=== PATIENT | male | born 1995 | race Caucasian/White ===

== ENCOUNTER → 2018-12-29 | Outpatient (CLI) | payer OTHER ==
[~2018-12-29] MED LIST: MELO-207 PO
--- NOTE | 2018-12-29 15:23 | RADIOLOGY IMAGING REPORT ---
FACILITY: [facility] - [place] PATIENT NAME: Delores Jean : 1995 MR: [id number] V: [id number] EXAM DATE: ORDERING PHYSICIAN: KISHORE LESLIE TECHNOLOGIST: Location: [facility] [place] Patient: Delores Jean : 1995 Visit/Account:[id number] Date of Sevice: 12/29/2018 KNEE 3 VIEW LEFT HISTORY: Knee pain COMPARISON: None FINDINGS: Left knee: No acute fracture or dislocation. No significant degenerative changes. No evidence of AVN. No joint effusion. No loose body. IMPRESSION: 1. No acute osseous abnormality. Report Dictated By: Willie Carmona MD at 12/29/2018 3:17 PM Report E-Signed By: Willie Carmona MD at 12/29/2018 3:18 PM WSN:[id number]
== END ==
LOC: RAD 14:55
PROVIDERS: ATTEND Internal Medicine
DX: S86.812A Strain of other muscle(s) and tendon(s) at lower leg level, left leg, initial encounter (principal)

== ENCOUNTER → 2019-01-07 | Outpatient (CLI) | payer OTHER ==
--- NOTE | 2019-01-07 09:10 | RADIOLOGY IMAGING REPORT ---
FACILITY: [facility] PATIENT NAME: Delores Jean : 1995 MR: [id number] V: [id number] EXAM DATE: ORDERING PHYSICIAN: KISHORE LESLIE TECHNOLOGIST: Location: [facility] Patient: Delores Jean : 1995 Visit/Account:[id number] Date of Sevice: 01/07/2019 MRI left knee without contrast Indication: Knee pain. History of [place] injury. Comparison: Plain film examination dated December 29, 2018 is reviewed. Technique: Multiplanar, multisequence MRI examination is performed of the left knee without contrast. Findings: Examination of the medial compartment demonstrates a normal medial meniscus. The articular cartilage surfaces are normal. Examination of the lateral compartment demonstrates a focal undersurface tear of the posterior horn o f the lateral meniscus. No displaced meniscal fragment is seen. Focal, intermediate severity chondros is involving the central weightbearing surface of the lateral femoral condyle with subchondral edema. Examination of the patellofemoral compartment demonstrates normal patellar and normal trochlear surfa dipti. There is a completely torn ACL. No intact fibers are seen. This is age indeterminant and may be chron ic given the lack of additional findings at this time. The PCL is intact. The MCL is intact. The lateral collateral ligament complex is maintained. The extensor mechanism is intact. A trace and likely physiologic joint effusion is seen. IMPRESSION: 1. Age indeterminant, completely torn anterior cruciate ligament. Given the history of a prior injury , this is likely a chronic finding. Correlate clinically. 2. Undersurface tear of the posterior horn of the left knee lateral meniscus. 3. 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 Report Dictated By: Jean Frazier at 01/07/2019 8:57 AM Report E-Signed By: Jean Frazier at 01/07/2019 9:03 AM WSN:[email or web address]
== END ==
LOC: MRI 00:28
PROVIDERS: ATTEND Internal Medicine
DX: S83.204A Other tear of unspecified meniscus, current injury, left knee, initial encounter (principal)